=== PATIENT | female | born 1965 | race Caucasian/White ===

== ENCOUNTER → 2024-09-30 15:32 | Outpatient (REF) | payer BC, SELFPAY | LOC: RAD 15:32 | PROVIDERS: ATTENDING PHYSICIAN Family Medicine | DX: R05.1 Acute cough (principal); G89.29 Other chronic pain; M54.6 Pain in thoracic spine | CPT/HCPCS: 71046 ==

== ENCOUNTER → 2024-12-06 12:57 | Outpatient (REF) | payer BC, SELFPAY | LOC: HWRAD 12:57 | PROVIDERS: ATTENDING PHYSICIAN Internal Medicine; FAMILY PHYSICIAN Family Medicine | DX: J92.9 Pleural plaque without asbestos (principal) | CPT/HCPCS: 71250 ==